=== PATIENT | female | born 1965 | race Caucasian/White ===

== ENCOUNTER 2016-12-03 05:51 | Inpatient (IN) ==
--- NOTE | 2016-11-20 13:19 | EKG Report ---
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
[2016-11-20 13:28] LABS: Hematocrit 41.8 VOL% (35.7-47.0); Hemoglobin 14.3 GM/DL (12.0-16.0)
[2016-11-20 13:51] LABS: Calcium 9.3 MG/DL (8.5-10.1); Osmolality,Calculated 277.4 MOS/KG (273-304); Potassium 3.8 MMOL/L (3.5-5.1)
[2016-12-03] MEDS ORDERED: HEPARIN 5,000 UNIT/1 ML VIAL ONE (06:03)
[2016-12-03] MEDS ORDERED: HYOSCYAMINE 0.125 MG TABLET ONE (06:03)
[2016-12-03] MEDS ORDERED: PANTOPRAZOLE 40 MG VIAL IV ONE ×4 (06:03→10:42)
[2016-12-03] MEDS ORDERED: SCOPOLAMINE 1.5 MG PATCH TRANSDERM ONE ×2 (06:04→07:00)
[2016-12-03] MEDS ORDERED: SODIUM CHLORIDE 0.9% 100 ML IV ONE (06:04)
[2016-12-03] MEDS ORDERED: ACETAMINOPHEN 1,000 MG/100 ML VIAL IV ONE (06:04)
[2016-12-03] MEDS ORDERED: LIDOCAINE 1%/EPI INJ 20 ML VIAL ONE (06:23)
[2016-12-03] MEDS ORDERED: BUPIVACAINE 0.25% /EPI 10 ML VIAL ONE (06:23)
[2016-12-03] MEDS: LACTATED RINGERS 1,000 ML IV SCH ×5 (06:37→23:49)
--- NOTE | 2016-12-03 06:59 | History and Physical Update ---
History and Physical Update - History and Physical H&P was reviewed, the patient examined and there: are no changes in the patients condition since last H&P was completed.
[2016-12-03] MEDS ORDERED: HYOSCYAMINE 0.125 MG TABLET SL ONE (07:00)
[2016-12-03] MEDS ORDERED: ACETAMINOPHEN INJ 1,000 MG in PREMIX 1 EACH IV ONE (07:00)
[2016-12-03] MEDS ORDERED: HEPARIN 5,000 UNIT/1 ML VIAL SUBCUT ONE (07:00)
[2016-12-03] MEDS ORDERED: GLYCOPYRROLATE 0.4 MG/2 ML VIAL ONE (07:08)
[2016-12-03] MEDS ORDERED: PHENYLEPHRINE 1 MG/10 ML SYRINGE IV ONE (07:08)
[2016-12-03] MEDS ORDERED: ONDANSETRON 4 MG/2 ML VIAL ONE ×2 (07:08→10:06)
[2016-12-03] MEDS ORDERED: PROPOFOL 200 MG/20 ML VIAL IV ONE (07:08)
[2016-12-03] MEDS ORDERED: DEXAMETHASONE 10 MG/1 ML VIAL ONE (07:08)
[2016-12-03] MEDS ORDERED: ROCURONIUM 100 MG/10 ML VIAL IV ONE (07:08)
[2016-12-03] MEDS ORDERED: NEOSTIGMINE 10 MG/10 ML VIAL ONE (07:08)
[2016-12-03] MEDS ORDERED: KETOROLAC 30 MG/1 ML VIAL ONE (07:08)
[2016-12-03] MEDS ORDERED: LIDOCAINE 1% 5 ML VIAL ONE (07:08)
[2016-12-03] MEDS ORDERED: BUPIVACAINE LIPOSOMAL 20 ML/266 MG VIAL ONE (07:12)
[2016-12-03] MEDS ORDERED: TISSUE ADHESIVE 1 EACH APPLICATOR TOP ONE (08:53)
[2016-12-03] MEDS ORDERED: hydrALAZINE 20 MG/1 ML VIAL IV PRN (09:17)
[2016-12-03] MEDS ORDERED: ONDANSETRON 4 MG/2 ML VIAL IV PRN (09:17)
--- NOTE | 2016-12-03 09:26 | Anesthesia Post-Op ---
Anesthesia Post OP - Post Ansesthetic Evaluation Patient seen in post op: Yes Resp: within normal limits CV: within normal limits Mental: within normal limits Temp: within normal limits Wery-Jy-Qlrmqiclv: within normal limits Nausea and Vomiting: within normal limits Pain: within normal limits
[2016-12-03] MEDS ORDERED: SUFentanil 50 MCG/ML AMP ONE (09:32)
[2016-12-03] MEDS ORDERED: LACTATED RINGERS 1,000 ML IV ONE ×2 (09:32→14:30)
[2016-12-03] MEDS ORDERED: MIDAZOLAM 2 MG/2 ML VIAL ONE (09:32)
[2016-12-03] MEDS ORDERED: SEVOFLURANE 1 UNIT/15 MINUTE INH ONE (09:32)
[2016-12-03] MEDS ORDERED: MORPHINE 10 MG/5 ML UDCUP PO ONE ×2 (09:36→14:30)
[2016-12-03] MEDS ORDERED: diphenhydrAMINE 50 MG/1 ML VIAL IV PRN (09:37)
[2016-12-03] MEDS ORDERED: ALUM/MAG/SIMETH/LIDO VISC 1:1 30 ML BOTTLE PO ONE ×2 (09:46→09:47)
[2016-12-03] MEDS ORDERED: ONDANSETRON 4 MG/2 ML VIAL IV ONE (10:08)
[2016-12-03] MEDS ORDERED: LACTATED RINGERS 500 ML IV ONE (10:08)
--- NOTE | 2016-12-03 10:17 | EKG Report ---
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
--- NOTE | 2016-12-03 10:56 | XRay Report ---
History: Postop Date: 12/03/2016 Study: Chest x-ray AP portable Comparison exam: September 08, 2016 chest x-ray There is some minor platelike subsegmental atelectasis in the lung bases. Shallow breath. There is no arnold pneumonia or gross pleural effusion. The cardiomediastinal silhouette is unchanged. The osseous structures are stable. Impression: Mild platelike subsegmental atelectasis in the lung bases. PROCEDURE INTERPRETED AT [facility]PARTMENT OF RADIOLOG[facility] Final Report Signed by: Dr. Marisol Dunn
--- NOTE | 2016-12-03 12:37 | Operative Note ---
Date of procedure: 12/03/16 Pre-op diagnosis: Morbid obesity, hypertension Post-op diagnosis: same Procedure: Procedure performed: Robotically assisted laparoscopic vertical sleeve gastrectomy Procedure in detail: After informed consent was obtained, patient was taken to the operating suite lies upon the operating table. After general anesthesia was induced the abdomen was prepped and draped in usual sterile fashion. After procedural pause left upper quadrant incision made and dissection carried down through skin and soft tissue. Anterior fascia was opened the rectus muscle was retracted and the posterior fascia and peritoneum were opened. Finger sweep revealed no adhesions and a Keller trocar was placed under direct visualization. Pneumoperitoneum achieved and the patient was placed in slight reverse Trendelenburg position. 12 mm and 8 mm right upper quadrant trochars were placed and 8 mm and 5 mm left upper quadrant trochars were placed. Experel was used for bilateral peritoneal block. Next the robotic arms were docked not to control to consult. Identified a point approximately 6 cm from the pylorus along the greater curve and began the dissection dividing the fatty tissue off of the greater curvature along with the short gastrics all the way up to the cardia of the stomach. There was no fusion along the posterior wall and the stomach was very freed. Visi G bougie was inserted and advanced through the stomach and manipulated as to hug the lesser curve. Once in satisfactory position and was placed on suction and there was good approximation of the anterior and posterior stomach. Vertical sleeve gastrectomy performed using 1 thick load in the remaining blue beginning along the greater curve and extending up to the cardia staying just on the lateral aspect of the groove created by the suction. There was excellent hemostasis with a little bit of blood in the left upper quadrant from the dissection this was suctioned and irrigated. With good hemostasis noted the staple line was inspected it was found to be completely intact. The remaining portion of stomach appeared healthy and viable in appearance. The staple line was then inverted with 2-0 Prolene running suture. The [place] G bougie was unhooked from suction and removed without problems. I again checked for hemostasis and it was good. There was no obvious hiatal hernia identified. The trochars were removed as the abdomen desufflated and the excised portion of stomach was removed and sent to pathology. Wounds were thoroughly irrigated and suction and the posterior and anterior fascia were reapproximated with interrupted 0 Vicryl [id number]-zu-[id number] interrupted suture. Deep dermal layer was closed with 3- 0 Vicryl. 4-0 Monocryl used to close the skin. Sterile dressings applied. Patient was explained taken recovery room in stable condition. All lap and needle counts were correct at the end of the case. Anesthesia: KIAA Surgeon / Physician: Rudolph Mcmahon Estimated blood loss: other (Less than 15 cc) Specimens: other (Stomach) Condition: stable Disposition: PACU Results - Labs CBC & BMP: 11/20/16 13:13 11/20/16 13:13 Discharge Plan - Discharge Medications No Action Levothyroxine Tab [Synthroid Tab] 88 mcg PO DAILY@0700 hydroCHLOROthiazide [Hydrochlorothiazide] 25 mg PO DAILY Sertraline [Zoloft] 100 mg PO DAILY Cholecalciferol (Vitamin D3) [Vitamin D3] 1 tablet PO DIRECTED Losartan [Cozaar] 25 mg PO DAILY - Follow Up or Referral - Forms/Instructions
[2016-12-03] MEDS: SERTRALINE 100 MG TABLET PO SCH (12:42)
--- NOTE | 2016-12-03 15:47 | Event Note ---
Patient appear to be doing well in recovery only complaining of some burping. She got to the floor in her blood pressure was slightly low about systolic of 90. She was not tachycardic. We gave her some fluid and it improved. She then got up to use the bathroom and had a near syncopal episode but did not pass out completely. Recheck of her blood pressure showed systolic in the 70s. I have evaluated in her abdomen is soft and appropriately tender and she is complaining of chest pain in the mid chest just above the xiphoid region. She also has shortness of breath. It appears an EKG was done and recovery room that showed an incomplete bundle branch block. She had a chest x-ray that showed some atelectasis. She has been given fluid and currently her systolic is 98. She still has no tachycardia. I discussed with Dr. Shelby and notified him. Will check another EKG now as well as an H&H and troponins. We will keep a close eye on her and if she becomes more hypotensive we will may have to transfer her to the ICU. Overall she looks pretty good and does not appear to be in any distress.
--- NOTE | 2016-12-03 16:05 | EKG Report ---
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
--- NOTE | 2016-12-03 16:18 | Cardiology Consult Note ---
Assessment and Plan - Time spent with patient Time spent with patient: Less than 30 minutes (1) Chest pain Status: Acute Assessment and plan: The patient is postoperatively seen. She has various types of discomfort that could suggest various etiologies. She certainly could have coronary ischemia and is at risk for coronary artery disease given her risk strata. There are no diagnostic EKG changes at this time. I discussed with Dr. Mcmahon. Cardiac biomarkers have been ordered and will be cycled. Also must consider noncardiac etiologies including esophageal spasm pulmonary embolism etc. Dr. Mcmahon and I discussed the plan if her biomarkers and hemoglobin hematocrit are acceptable consider CT scan of the chest to rule out pulmonary embolism. I do not think at this time any specific therapy should be initiated for ischemia. Continue serial ECGs. 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 Cabello is a 51 year old female CC: Rudolph Mcmahon MD 51-year-old female that I saw preoperatively for sleeve procedure. The patient preoperatively had no signs or symptoms of decompensated heart failure or any chest discomfort to suggest angina or unstable angina or decompensation. She has an incomplete right bundle branch block on her EKG. This EKG is very similar to the 2 that have been performed postoperatively. The patient had a sleeve procedure today with no significant bleeding at the time of the procedure now while on the floor post procedure develops shortness of breath and discomfort in her chest she states it is hard to breathe and hurts when she takes a deep breath. I discussed with Dr. Vieira via phone I came and saw and examined the patient and discussed again with Dr. Vieira. I have looked at her EKGs she has sinus rhythm with incomplete right bundle branch block and no diagnostic ST segment changes. There is some subtle difference in the 3 EKGs isolated in V3. This does not appear to suggest ischemia. I saw and examined the patient the bedside at which time her blood pressure was 110/70 heart rate was initially 80 to be during my exam it went to 100. The patient was hypotensive slightly after surgery and had a syncopal or near syncopal episode when getting up to go to the restroom at which time she had a low blood pressure. She denies radiation of the discomfort that she describes as being in her "bra line." She has non-diaphoretic. - Home Medications and Allergies Home Medications: Home Medications Medication Instructions Recorded Confirmed Type Cholecalciferol (Vitamin D3) 1 tablet PO DAILY 11/20/16 12/03/16 History [Vitamin D3] Levothyroxine Tab [Synthroid Tab] 88 mcg PO DAILY@0700 11/20/16 12/03/16 History Losartan [Cozaar] 25 mg PO DAILY 11/20/16 12/03/16 History Sertraline [Zoloft] 100 mg PO DAILY 11/20/16 12/03/16 History hydroCHLOROthiazide 25 mg PO DAILY 11/20/16 12/03/16 History [Hydrochlorothiazide] Allergies/Adverse Reactions: Allergies Allergy/AdvReac Type Severity Reaction Status Date / Time sulfamethoxazole Allergy Severe ANAPHYLAXIS Verified 12/03/16 06:26 [From Bactrim] trimethoprim [From Bactrim] Allergy Severe ANAPHYLAXIS Verified 12/03/16 06:26 hydrocodone Allergy Mild RASH Verified 12/03/16 06:26 - EENT Nose, mouth and throat: Absent: dysphagia, lip swelling, nasal congestion - Cardiovascular Cardiovascular: Present: chest pain at rest, dyspnea, other (As per HPI pain with inspiration) - Respiratory Respiratory: Present: dyspnea - Gastrointestinal Gastrointestinal: Present: bloating, dyspepsia - Genitourinary Genitourinary: Absent: abnormal vaginal bleeding - Musculoskeletal Musculoskeletal: Absent: arthralgias - Neurological Neurological: Absent: abnormal gait - Psychiatric Psychiatric: Present: anxiety. Absent: depression - Endocrine Endocrine: Absent: cold intolerance, heat intolerance - Hematologic/Lymphatic Hematologic/Lymphatic: Absent: easy bleeding, easy bruising Medical,Surgical,& Family Hx - Medical History Cardio: History of: Hypertension (medication) No history of: Cardiac Dysrhythmia, CHF, [place], Pacemaker, PVD, Valvular Heart Disease Psychological: History of: Anxiety Disorders (medication) Neurology: No history of: Brain Aneurysm, Migraine, Peripheral Neuropathy, Seizures HEENT: History of: Eye Problem (glasses) Endocrine: History of: Thyroid Disorder (medication) Gastrointestinal: No history of: Diverticulitis/ Diverticulosis, GERD, Hepatitis, Liver Problems, Polyps Hematology: No history of: Blood Transfusion Reaction Other: No history of: Anesthesia Reactions - Surgical History Cardiac Surgeries: Patient Denies: Cardiac Catheterization Thoracic Surgeries: Patient denies;: Organ Transplant Neurologic Surgeries: Patient denies: Brain Aneurysm HEENT Surgeries: Surgical HX of: Tonsilectomy & Adenoidectomy Abdominal Surgeries: Surgical HX of: Gastric Bypass Surgery (for weight loss) Reproductive Surgeries: Surgical HX of;: Section (x2) - Family History Family History: noncontributory - Social History Smoking Status: Never smoker Frequency of Alcohol Use: None Type of Drug Use: None Marital Status: Lives With:: Spouse Functional capacity: independent ambulation Physical Examination Vital Signs Temp Pulse Resp BP Pulse Ox 97.5 F L 75 16 113/70 96 12/03/16 06:27 12/03/16 06:27 12/03/16 06:27 12/03/16 06:27 12/03/16 06:27 General: Present: Other (Obese in mild distress she appears anxious. She is not tachypneic) HEENT: Present: Pallor, Normocephaly Neck: Present: Supple Neck, No JVD/HJR Cardiac: Present: S1/S2 (Her heart rate is approximately 85) Lungs: Present: Other (She will not take a good deep breath because of pain. It arrest her inspiratory effort) Neuro: Present: Cranial Nerve 2-12 Intact Abdomen: Present: Soft, Active Bowel Sounds (Bowel sounds are hyperactive and she belched multiple times during the examination) Skin: Present: Clear Extremities: Present: No Edema (SCDs are in place) Result/EKG - Labs CBC & BMP: 11/20/16 13:13 11/20/16 13:13 - EKG EKG results: interpreted by me (Sinus rhythm with incomplete right bundle branch block) Quality Measures - VTE Contraindication to Pharmacological VTE Prophylaxis: High Risk of Bleeding
[2016-12-03 16:34] LABS: Hematocrit 28.5 VOL% (35.7-47.0); Hemoglobin 9.6 GM/DL (12.0-16.0)
[2016-12-03] MEDS: ceFAZolin 2,000 MG in PREMIX 1 EACH IV SCH ×2 (16:34→23:48)
[2016-12-03 17:12] LABS: Troponin I Only 0.028 NG/ML (0.00-0.045)
[2016-12-03] MEDS ORDERED: LORazepam 1 MG TABLET ONE (17:55)
[2016-12-03] MEDS ORDERED: LORazepam 2 MG/1 ML VIAL ONE (17:56)
[2016-12-03] MEDS ORDERED: LORazepam 2 MG/1 ML VIAL IV ONE (18:00)
--- NOTE | 2016-12-03 19:15 | CT Report ---
CT chest pulmonary embolism Indication: Chest pain, syncope Comparison: None available Technique: Axial CT imaging of the chest is performed with intravenous contrast. Contrast dose is 80 cc of Omnipaque 350. Findings: No thrombus or other abnormality is identified in the pulmonary arteries or veins. The pulmonary vessel caliber is slightly increased. The heart, mediastinum and great vessels appear within normal limits. Small amounts of bilateral lower lung air space density are present. Remaining pulmonary parenchyma shows no evidence of airspace disease or abnormal density. No effusion or pneumothorax is present. Impression: No evidence of pulmonary thromboembolism. Small amount of bilateral lower lung airspace density, may indicate atelectasis. Increased pulmonary vasculature could indicate mild cardiac decompensation.. This CT exam was performed using one or more the following dose reduction techniques: Automated exposure control, adjustment of the MA and/or KV according to patient size, or use of iterative reconstruction technique. PROCEDURE INTERPRETED AT [facility] DEPARTMENT OF RADIOLOGY Final Report Signed by: Dr. Abhi Davis
--- NOTE | 2016-12-03 19:28 | CT Report ---
CT abdomen pelvis Indication: Abdominal pain, postoperative gastric sleeve Comparison: None available Technique: Axial CT imaging of the abdomen and pelvis is performed with intravenous and oral contrast. Contrast dose is 100 cc of Omnipaque 350. Findings: Cardiac and lung bases are within normal limits CT abdomen: There is moderate perihepatic fluid with a small amount of air present. There is large amount of perisplenic fluid with some increased density. No active contrast extravasation into the fluid is identified The spleen itself appears within normal limits. Surgical changes are present in the adjacent stomach wall. The liver spleen pancreas and adrenal glands are normal in size and enhancement. No evidence of focal lesion is demonstrated in these solid organs. Fluid with some heterogeneous density is seen in the paracolic gutters. Kidneys are normal in size and enhancement. No evidence of hydronephrosis or nephrolithiasis is seen. The bowel caliber is normal and no wall thickening or adjacent inflammatory change is seen. No evidence of free fluid or free air is present. CT pelvis: The pelvic bowel appears within normal limits. Bladder shows no evidence of abnormality. The pelvic organs show no evidence of abnormality Impression: Moderate amount of perihepatic fluid with small amount of air present. Large amount of perisplenic fluid with some increased density in the fluid. Spleen appears within normal limits in size of the fluid. This likely indicates some combination of hemorrhage and air in solution. Patient had surgery same day. Findings discussed Dr. Vieira. This CT exam was performed using one or more the following dose reduction techniques: Automated exposure control, adjustment of the MA and/or KV according to patient size, or use of iterative reconstruction technique. PROCEDURE INTERPRETED AT [facility] DEPARTMENT OF RADIOLOGY Final Report Signed by: Dr. Abhi Davis
[2016-12-03] MEDS: MEPERIDINE 25 MG/1 ML VIAL IV PRN (21:43)
[2016-12-03 22:18] LABS: Hematocrit 27.7 VOL% (35.7-47.0); Hemoglobin 9.6 GM/DL (12.0-16.0)
[2016-12-04] MEDS: LACTATED RINGERS 1,000 ML IV SCH ×3 (03:55→21:09)
[2016-12-04] MEDS: MEPERIDINE 25 MG/1 ML VIAL IV PRN ×3 (03:56→14:59)
[2016-12-04 05:05] LABS: Basophils % 0.1 % (0.0-0.8); Hematocrit 25.5 VOL% (35.7-47.0); Hemoglobin 8.7 GM/DL (12.0-16.0); Immature Granulocytes % 0.6 %; Immature Granulocytes Absolute 0.06 #; Lymphocytes % 10.7 % (21.3-54.2); Mean Corpuscular HGB Conc 34.1 GM/DL (32-36); Mean Corpuscular Hemoglobin 30 PG (27-34); Mean Corpuscular Volume 86.7 FL (87-102); Mean Platelet Volume 9.3 FL (9.6-12.0); Monocytes # 0.5 10*3/uL (0.11-0.8); Monocytes % 5.7 % (1.7-12.7); Neutrophils # 7.7 10*3/uL (1.4-7.4); Neutrophils % 82.9 % (38.7-73.9); Platelet Count 204 T/CUMM (130-400); Red Blood Count 2.94 MC/CUMM (3.8-5.5); Red Cell Distribution Width 13.5 % (9.3-17.3); White Blood Count 9.3 T/CUMM (4-12)
[2016-12-04 05:39] LABS: Osmolality,Calculated 273.7 MOS/KG (273-304); Potassium 3.1 MMOL/L (3.5-5.1)
[2016-12-04] MEDS: LEVOTHYROXINE 88 MCG TABLET PO SCH (06:52)
--- NOTE | 2016-12-04 08:21 | Event Note ---
Postop day 1 status post vertical sleeve gastrectomy. Patient experienced some hypotension yesterday. She was having some shortness of breath and lower chest pain. EKG and cardiac enzymes looked okay. She had a drop in her H&H. Would not expect hypotension with a hemoglobin of 9.7. She has not had any tachycardia. She remains afebrile. She had a CT scan to rule out a PE. There was no PE but she does have some fluid mostly around the spleen and some around the right lobe of the liver. I think some of this is likely blood and some of it is irrigation. Repeat H&H last night was stable. This morning it is slightly lower. She is continued to get IV fluids. I suspect the most likely source is probably bleeding from a short gastric or oozing from the dissection. She has clinically been stable overnight. She says today she feels a little bit better. Still having some lower chest discomfort but her shortness of breath is much improved. She is clear to auscultation bilaterally. Regular rate and rhythm. Abdomen is soft nondistended with very minimal tenderness elicited. She is less tender than one would expect after a laparoscopic case. Plan: She may have had some bleeding. We will have to watch this closely. I am going to hold on any Lovenox or blood thinners. We will recheck her H&H today. We will stop her IV fluids encourage more p.o. She will continue with the diet protocol for now. Will replace potassium. I have encouraged her to ambulate and be up in a chair. May be home in a day or 2. If she has evidence of ongoing active bleeding then will plan for laparoscopy and see if we can identify this. I suspect whatever was bleeding is likely stopped and she is just equilibrating. There was no active extravasation on the CT scan. She may require blood transfusion but will see if she become symptomatic or if her H&H drops further. Nursing staff instructed to call me directly with any concerns regarding this patient. Especially for fever hypotension below 90 or heart rate above 110.
[2016-12-04] MEDS ORDERED: POTASSIUM CHLORIDE RIDER 10 MEQ in PREMIX 1 EACH IV PRN (08:25)
[2016-12-04] MEDS ORDERED: POTASSIUM CHLORIDE RIDER 10 MEQ in PREMIX 1 EACH IV ONE (09:47)
[2016-12-04] MEDS: PANTOPRAZOLE 40 MG VIAL IV SCH (10:04)
[2016-12-04] MEDS: SERTRALINE 100 MG TABLET PO SCH (10:05)
[2016-12-04] MEDS: SIMETHICONE CHEW 80 MG TABLET PO SCH ×3 (10:05→21:09)
--- NOTE | 2016-12-04 11:35 | Pathology Report from [facility] ---
[facility] ACCESSION # : [id number] PATIENT NAME : Elliott Coles ORDERING DR : Rudolph Mcmahon MD CLINICAL HX: Morbid obesity POST-OP DX: Same SPECIMEN INFO: Portion of stomach GROSS DESCRIPTION: The specimen is received in formalin labeled with the patients name ELLIOTT COLES and consists of a circular portion of stomach which is hyperemic pink-hooker measuring 23.5 cm x up to 4.0 cm. Opening the stomach reveals normal mucosal folds, and contains hemorrhagic material. There is a 0.2 cm polypoid area present. No other abnormalities identified. Roster Clerk tissue submitted in one cassette. DIAGNOSIS FOR ELLIOTT COLES: PORTION OF STOMACH, GASTRECTOMY: Congestion and submucosal lipoma. COLLECTED DATE: 12/03/2016 [facility] REPORT DATE: 12/04/2016 ELECTRONICALLY SIGNED BY: Jacques Carias M.D. 12/04/2016 - 9:50:53 MTDD
[2016-12-04] MEDS: POTASSIUM CHLORIDE RIDER 10 MEQ in PREMIX 1 EACH IV PRN ×4 (11:57→18:38)
[2016-12-04 13:33] LABS: Hemoglobin 8.2 GM/DL (12.0-16.0)
--- NOTE | 2016-12-04 16:46 | Cardiology Progress Note ---
Gato Snider Vanessa RN, am scribing for, and in the presence of, Jennifer Garcia DO 16 :46. Assessment and Plan - Time spent with patient Time spent with patient: Greater than 30 minutes (1) Chest pain Status: Acute Assessment and plan: Atypical chest pain status post sleeve gastrectomy with lots of belching in immediate postoperative period. Serial cardiac biomarkers have been normal. EKG with no acute changes or ischemic finding. I have nothing further to add at this time I will sign off. Please call if needed Current Visit: Yes Qualifiers: Chest pain type: chest pain on breathing Qualified Code(s): R07.1 - Chest pain on breathing (2) Status post laparoscopic sleeve gastrectomy Status: Acute Assessment and plan: POD #1 status post laparoscopic vertical sleeve gastrectomy. This is primarily managed by Dr. Mcmahon. Due to some persistent hypotension in spite of IV hydration, she is being monitored closely for bleeding. All anticoagulants are being held. Current Visit: Yes (3) Postoperative anemia Status: Acute Assessment and plan: Preoperative H&H 14.3/41.8. Initial postoperative drop to hemoglobin 9.6. This morning, H&H 8.7/25.5. Anticoagulation is being held. She has not required transfusion at this time. Current Visit: Yes (4) Diabetes Status: Chronic Assessment and plan: Continue current plan of care. 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 Patient is actually having some hypotension with SBP no lower than 98 mmHg overnight. She is receiving IV fluids. Continue to monitor closely. No routine antihypertensive medications being given at this time. Current Visit: Yes Qualifiers: Hypertension type: essential hypertension Qualified Code(s): I10 - Essential (primary) hypertension (6) Obesity Status: Chronic Assessment and plan: Dietary counseling and caloric intake reduction. Patient is also now status post laparoscopic sleeve gastrectomy. Current Visit: Yes Cardiology - PN: Subj Interval history: PRIMARY STRUCTURES ENGINEER: DR. GARCIA (SAW FOR PREOPERATIVE EXAM) SUMMARY: Ms. Cabello is a 51-year-old white female with risk factor significant for: obesity, hypertension, diabetes, sedentary lifestyle. Other past medical history includes thyroid disorder. Patient underwent elective laparoscopic sleeve gastrectomy yesterday December 03. Procedure was uneventful. Postoperatively, she reported some chest pain. Cardiology was consulted for evaluation of chest pain EKG showed no diagnostic changes. Serial cardiac biomarkers have been cycled and they are normal. Chest CT per PE protocol on the evening of December 03 showed minimal atelectasis bilateral lower lobes but no evidence of pulmonary embolism. November: Ms. Cabello is awake and alert this morning, and she is ambulating out of the bathroom without assistance. Her is present with her. Reports she had some nausea earlier but no vomiting. Patient has continued to have some hypotension with systolic pressure no lower than 98 mmHg overnight. She has been hydrated with IV fluids. Postop H&H this morning 8.7/25.5. She is being monitored closely for bleeding. Anticoagulants are being held. Patient has not required transfusion. She does continue to report some intermittent atypical chest pain described as epigastric pressure with discomfort radiating to right side of chest at times. No associated diaphoresis, presyncope, palpitations, or other anginal complaint. Admits to belching and burping overnight and this morning. She is having some mild postop surgical discomfort of the abdomen. Appetite is good this morning. BP 115/65. Pulse is regular by exam. Patient is getting ready to ambulate down the hallway with assistance of her . The patient's discomfort seems to be related to gas. After several eructation she is doing better she has been taking Gas-X and states that she feels better her H&H are noted as above hemoglobin is down 8.[address] Mcmahon was to keep her over the evening consider transfusion based on her H&H today. She looks much better today there is no evidence of acute coronary syndrome or cardiac etiology for her atypical chest discomfort Exam (Progress Note) - Constitutional Vitals: Period Temp Pulse Resp BP Sys/Cortez Pulse Ox Last 24 Hr 96 F-98.5 F 63-98 16-21 78-129/40-82 92-99 Exam: General: Present: No acute distress. Obese. HEENT: Present: Pallor, Normocephaly. No tenderness. Neck: Present: Supple Neck, No JVD/HJR Cardiac: Present: S1/S2. Regular rate and rhythm. No bradycardia, no tachycardia. No murmur. Lungs: Present: Other (She will not take a good deep breath because of pain. It arrest her inspiratory effort) Neuro: Present: Cranial Nerve 2-12 Intact. No resting tremor. Abdomen: Present: Soft, hyperactive active Bowel Sounds. Other: Some abdominal tenderness related to surgical procedure. Skin: Present: Clear, warm, dry. Absent: Cyanosis, diaphoresis, rash, suspicious lesion. Extremities: Present: No Edema (SCDs are in place). Result/EKG - Labs CBC & BMP: 12/04/16 13:05 12/04/16 04:46 Lab Results: I have reviewed the past 24 hour labs Labs: Laboratory Results - last 24 hr 12/03/16 12/03/16 12/03/16 15:49 15:52 15:52 WBC RBC Hgb 9.6 L Hct 28.5 L MCV MCH MCHC RDW Plt Count MPV Neut % (Auto) Lymph % (Auto) Robeson % (Auto) Eos % (Auto) Baso % (Auto) Neut # (Auto) Lymph # (Auto) Robeson # (Auto) Eos # (Auto) Baso # (Auto) Immature Gran % Nucleated RBC % Immature Gran # Nucleated RBCs # Immature Plt Fraction Sodium Potassium Chloride Carbon Dioxide Anion Gap BUN Creatinine GFR Calculation BUN/Creatinine Ratio Glucose Calculated Osmolality Calcium Total Creatine Kinase 75 CK-MB (CK-2) 1.0 Troponin I 0.028 Blood Type A POSITIVE Antibody Screen Negative 12/03/16 12/04/16 12/04/16 21:41 04:46 04:46 WBC 9.3 RBC 2.94 L Hgb 9.6 L 8.7 L Hct 27.7 L 25.5 L MCV 86.7 L MCH 30 MCHC 34.1 RDW 13.5 Plt Count 204 MPV 9.3 L Neut % (Auto) 82.9 H Lymph % (Auto) 10.7 L Robeson % (Auto) 5.7 Eos % (Auto) 0.0 Baso % (Auto) 0.1 Neut # (Auto) 7.7 H Lymph # (Auto) 1.0 L Robeson # (Auto) 0.5 Eos # (Auto) 0.0 Baso # (Auto) 0.0 Immature Gran % 0.6 Nucleated RBC % 0.0 Immature Gran # 0.06 Nucleated RBCs # 0.00 Immature Plt Fraction 0.0 Sodium 138 Potassium 3.1 L Chloride 103 Carbon Dioxide 29 Anion Gap 9.1 BUN 7 Creatinine 0.60 GFR Calculation 130 BUN/Creatinine Ratio 11.00 Glucose 115 H Calculated Osmolality 273.7 Calcium 8.0 L Total Creatine Kinase CK-MB (CK-2) Troponin I Blood Type Antibody Screen 12/04/16 06:47 WBC RBC Hgb Hct MCV MCH MCHC RDW Plt Count MPV Neut % (Auto) Lymph % (Auto) Robeson % (Auto) Eos % (Auto) Baso % (Auto) Neut # (Auto) Lymph # (Auto) Robeson # (Auto) Eos # (Auto) Baso # (Auto) Immature Gran % Nucleated RBC % Immature Gran # Nucleated RBCs # Immature Plt Fraction Sodium Potassium Chloride Carbon Dioxide Anion Gap BUN Creatinine GFR Calculation BUN/Creatinine Ratio Glucose Calculated Osmolality Calcium Total Creatine Kinase CK-MB (CK-2) Troponin I 0.022 Blood Type Antibody Screen - Diagnostic Findings Procedure: CT - chest: image reviewed by me, report reviewed by me - EKG EKG results: interpreted by me, no acute changes EKG shows: sinus rhythm Quality Measures - VTE Contraindication to Pharmacological VTE Prophylaxis: High Risk of Bleeding IAnaly Shea, , personally performed the services described in this documentation, ascribed by Maria Alejandra Hoskins RN in my presence, and it is both accurate and complete 646 .
[2016-12-04 19:18] LABS: Hematocrit 23.1 VOL% (35.7-47.0); Hemoglobin 7.9 GM/DL (12.0-16.0)
[2016-12-04] MEDS ORDERED: SODIUM CHLORIDE 0.9% 250 ML IV PRN (20:01)
[2016-12-05] MEDS: LACTATED RINGERS 1,000 ML IV SCH ×2 (01:07→05:40)
[2016-12-05] MEDS: MEPERIDINE 25 MG/1 ML VIAL IV PRN (01:14)
[2016-12-05 06:18] LABS: Basophils % 0.3 % (0.0-0.8); Eosinophils % 0.1 % (0.00-10.9); Hematocrit 27.3 VOL% (35.7-47.0); Hemoglobin 9.4 GM/DL (12.0-16.0); Immature Granulocytes % 1.6 %; Immature Granulocytes Absolute 0.11 #; Lymphocytes # 1.2 10*3/uL (1.4-4.0); Lymphocytes % 17.5 % (21.3-54.2); Mean Corpuscular HGB Conc 34.4 GM/DL (32-36); Mean Corpuscular Hemoglobin 30 PG (27-34); Mean Corpuscular Volume 87.8 FL (87-102); Mean Platelet Volume 9.3 FL (9.6-12.0); Monocytes # 0.4 10*3/uL (0.11-0.8); Monocytes % 6.2 % (1.7-12.7); Neutrophils % 74.3 % (38.7-73.9); Platelet Count 147 T/CUMM (130-400); Red Blood Count 3.11 MC/CUMM (3.8-5.5); Red Cell Distribution Width 14.6 % (9.3-17.3); White Blood Count 6.8 T/CUMM (4-12)
[2016-12-05 06:46] LABS: Calcium 7.9 MG/DL (8.5-10.1); Potassium 3.2 MMOL/L (3.5-5.1)
[2016-12-05] MEDS ORDERED: ACETAMINOPHEN 325 MG/10.15 ML UDCUP PO PRN (08:33)
[2016-12-05] MEDS ORDERED: ENOXAPARIN 40 MG/0.4 ML SYRINGE SUBCUT SCH (09:00)
[2016-12-05] MEDS: LEVOTHYROXINE 88 MCG TABLET PO SCH (09:16)
[2016-12-05] MEDS: SERTRALINE 100 MG TABLET PO SCH (09:16)
[2016-12-05] MEDS: SIMETHICONE CHEW 80 MG TABLET PO SCH ×3 (09:16→22:08)
[2016-12-05] MEDS: PANTOPRAZOLE 40 MG VIAL IV SCH (09:17)
[2016-12-05] MEDS: POTASSIUM CHLORIDE RIDER 10 MEQ in PREMIX 1 EACH IV PRN ×4 (12:40→18:45)
[2016-12-05 13:02] LABS: Hematocrit 27.3 VOL% (35.7-47.0); Hemoglobin 9.1 GM/DL (12.0-16.0)
--- NOTE | 2016-12-05 13:20 | Event Note ---
Patient feels great. Says she is ready to go home. Her vitals been stable. She is been tolerating her phase 1 diet without any nausea. The discomfort she had in the lower chest is completely resolved. She has been afebrile. She received 2 units of blood. I think she had some bleeding postoperatively. After the 2 units this morning her H&H was 9.4 and 27.3. It was rechecked approximately 7 hours later and had hardly changed at 9.1 and again hematocrit was 27.3. Her abdomen is soft with less tenderness than expected. She is passing flatus and she is doing very well. She has been ambulating. Hopefully the bleeding is stopped. I am going to repeat her lab work this evening and go from there. Other than the concern for bleeding she ready to go home.
[2016-12-05 20:22] LABS: Hematocrit 26.3 VOL% (35.7-47.0); Hemoglobin 8.9 GM/DL (12.0-16.0)
[2016-12-05] MEDS ORDERED: SODIUM CHLORIDE 0.9% 250 ML IV PRN (20:39)
--- NOTE | 2016-12-05 20:50 | Event Note ---
Patient continues to feel well. Her vital signs are stable. Her abdomen is soft and appropriately tender. Overall she is doing very well but her H&H has continued to trend down. This is been discussed with her and her family. Options of continuing to watch it versus laparoscopy to attempt to identify the source of bleeding were discussed. I discussed the risks of the procedure again including the possibility that no obvious active bleed is identified. She would like to proceed to attempt and identify any source of bleeding and take care of it at this time. She understands the possibility of conversion to an open procedure.
[2016-12-05] MEDS ORDERED: LIDOCAINE 1%/EPI INJ 20 ML VIAL ONE (22:26)
[2016-12-05] MEDS ORDERED: BUPIVACAINE 0.25% /EPI 10 ML VIAL ONE (22:26)
[2016-12-05] MEDS ORDERED: TISSUE ADHESIVE 1 EACH APPLICATOR TOP ONE (22:26)
[2016-12-05] MEDS ORDERED: ceFAZolin 1,000 MG VIAL ONE (22:26)
[2016-12-06] MEDS ORDERED: PROPOFOL 200 MG/20 ML VIAL IV ONE (01:42)
[2016-12-06] MEDS ORDERED: ONDANSETRON 4 MG/2 ML VIAL IV PRN (01:42)
[2016-12-06] MEDS ORDERED: MIDAZOLAM 2 MG/2 ML VIAL ONE (01:43)
[2016-12-06] MEDS ORDERED: fentaNYL 100 MCG/2 ML VIAL ONE (01:43)
[2016-12-06] MEDS ORDERED: GLYCOPYRROLATE 0.4 MG/2 ML VIAL ONE (01:43)
[2016-12-06] MEDS ORDERED: NEOSTIGMINE 10 MG/10 ML VIAL ONE (01:43)
[2016-12-06] MEDS ORDERED: LACTATED RINGERS 1,000 ML IV ONE (01:43)
[2016-12-06] MEDS ORDERED: DESFLURANE 1 UNIT/15 MINUTE INH ONE (01:43)
[2016-12-06 01:45] LABS: Hematocrit 36.5 VOL% (35.7-47.0)
[2016-12-06] MEDS: HYDROmorphone 2 MG/1 ML VIAL IV PRN ×3 (01:45→02:03)
[2016-12-06 01:47] LABS: Hemoglobin 12.4 GM/DL (12.0-16.0)
--- NOTE | 2016-12-06 02:08 | Operative Note ---
Date of procedure: 12/05/16 Pre-op diagnosis: hemoperitoneum, s/p sleeve gastrectomy Post-op diagnosis: same Procedure: Procedure performed: Diagnostic laparoscopy, clip ligation of short gastric vessels Procedure in detail: After informed consent was obtained patient taken operating suite lies upon the operating table. After general anesthesia induced the abdomen was prepped and draped in usual sterile fashion. After procedural pause local anesthetic infiltrated in the skin and subcutaneous tissue around the previous incisions and I opened the previous Keller trocar site and bluntly dissected down to the fascial stitch removed it and bluntly entered the abdominal cavity. There was no adhesions and a Keller trocar was placed under direct visualization. Pneumoperitoneum was achieved camera inserted. The nearby bowel and mesentery were inspected and there appeared uninjured. In the left upper quadrant there was some obvious bloody fluid. There was some bloody tinged fluid in the right abdomen but appeared more serosanguineous compared to the left upper quadrant. Patient was placed in reverse Trendelenburg position. A 5 and 10 mm trocar were placed using the previous left upper quadrant incisions. A small 5 mm trocar was also placed in the epigastric region for fan retraction. Then able to suction the blood from the left upper quadrant including some clot between the spleen and the sleeve. Appeal the omentum and fatty tissue away from the staple line of t sleeve and examined the sleeve well. The sleeve looked excellent. It appeared healthy viable and there was no bleeding from the staple line inversion or anywhere along the sleeve. Continue to suction some clot from around the area of the short gastrics but found no active spurting i or oozing in this area. I saw several short gastrics that had been ligated with the vessel sealer but none were actively bleeding. I elected to place clips on these vessels. I continue to inspect around the spleen and splenic hilum. I found no active bleeding but there was a slow recurrence of pooling of blood in the left upper quadrant around the spleen. I spent over 2 hours trying to identify exactly what was bleeding but found nothing. I found no bleeding in the area of the previous dissection. I could not evaluate the posterior splenic recess very well. I therefore elected to connect the 2 trocar sites with an incision and placed the GelPort. Using a hand assist technique I was then able to pull the spleen inferiorly to examine the sub-diaphragmatic space and the top of the spleen and found no source of bleeding. Multiple lap pads were then placed in the left upper quadrant and I packed this and then held pressure with my hand for about 15 minutes and then the packs were removed. The pooling of blood in the left upper quadrant slowed significantly. Previously it appeared to be more bright and now very minimal darker venous appearing blood was pooling. I again searched the staple line the short gastric resection area and all around the spleen and could not find any evidence of oozing or bleeding. I replaced the packs and held pressure for another 15 minutes. Once removed I found no further pooling of blood and no evidence of ongoing active bleeding. [place] like the most likely source would have been the short gastrics. Surgicel was introduced and placed along the line of dissection of the short gastrics. Another was placed around the splenic hilum. Tisseel was used to spray the staple line in the area of the short gastrics. A 10 [place] VALENTINO drain was placed on soft but diaphragmatic recess above the spleen. It was brought out through the epigastric port. Secured in place using 3-0 nylon suture. The fascia at the old Keller trocar site was closed using 0 Vicryl [id number] interrupted suture. Fascia at the hand assist site was closed using #1 Prolene running suture. The wounds were thoroughly irrigated and suctioned. There appeared to be good hemostasis and the deep dermal layers were closed with 3-0 Vicryl. 4-0 Monocryl used to close the skin. Sterile dressings applied and the patient was extubated and taken recovery room in stable condition. All lap and needle counts correct at the end of the case. Anesthesia: GETA Surgeon / Physician: Rudolph Mcmahon Estimated blood loss: other (300 cc previous blood, about 100 cc of fresh blood) Specimens: none sent Condition: stable Disposition: PACU Results - Labs CBC & BMP: 12/06/16 09:49 12/06/16 09:49 Discharge Plan - Discharge Medications No Action Levothyroxine Tab [Synthroid Tab] 88 mcg PO DAILY@0700 hydroCHLOROthiazide [Hydrochlorothiazide] 25 mg PO DAILY Sertraline [Zoloft] 100 mg PO DAILY Cholecalciferol (Vitamin D3) [Vitamin D3] 1 tablet PO DAILY Losartan [Cozaar] 25 mg PO DAILY - Follow Up or Referral - Forms/Instructions
[2016-12-06] MEDS: LACTATED RINGERS 1,000 ML IV SCH ×2 (02:40→08:49)
[2016-12-06] MEDS: MEPERIDINE 25 MG/1 ML VIAL IV PRN ×6 (04:11→23:02)
[2016-12-06] MEDS: LEVOTHYROXINE 88 MCG TABLET PO SCH (06:15)
[2016-12-06] MEDS ORDERED: LORazepam 2 MG/1 ML VIAL IV PRN (06:41)
[2016-12-06 10:18] LABS: Hematocrit 35.5 VOL% (35.7-47.0); Hemoglobin 12.3 GM/DL (12.0-16.0)
[2016-12-06 10:32] LABS: PT Patient Result 10.7 SECS
[2016-12-06 10:38] LABS: Calcium 7.7 MG/DL (8.5-10.1); Osmolality,Calculated 275.5 MOS/KG (273-304); Potassium 3.9 MMOL/L (3.5-5.1)
[2016-12-06] MEDS: HYOSCYAMINE 0.125 MG TABLET PO PRN ×3 (10:58→19:23)
[2016-12-06] MEDS: SERTRALINE 100 MG TABLET PO SCH (10:59)
[2016-12-06] MEDS: PANTOPRAZOLE 40 MG VIAL IV SCH (10:59)
[2016-12-06] MEDS: SIMETHICONE CHEW 80 MG TABLET PO SCH ×3 (10:59→21:16)
--- NOTE | 2016-12-06 11:52 | Event Note ---
Patient is doing well this morning. Her vital signs have been stable. She had a low-grade temperature around the time of the operation and blood transfusion. She is currently afebrile. She only complains of pain at the hand assist site. This is expected. VALENTINO drain has put out minimal dark serosanguineous fluid. There are no clots. H&H is stable compared to the posttransfusion lab work. Rest of her lab work looks good. Will stop her IV fluids restart phase 1 diet for now. We will add Levsin to see if that helps with some of her crampy pain. We will try Hycet elixir as I think it will help control her pain long-term better but she can still use the IV Demerol as needed. She says she has used hydrocodone several times in the past. The last time she was in the hospital for a broken ankle she says she had some rash. She was told it may be the hydrocodone that she had never had a problem before when using it. It is unsure whether she has a real allergy to hydrocodone or some other medicine that may have been used at that time. Will have a lot of options for liquid pain medicine so we will try the liquid hydrocodone. She is only getting about 500 cc on her incentive spirometry so we will start some IPPB. Encouraged her to get up to a chair. We will recheck her lab work tomorrow.
[2016-12-06] MEDS: HYDROcod/ACETAMIN 7.5-325 MG/15 ML UDCUP PO PRN ×2 (15:00→21:16)
[2016-12-07] MEDS: HYDROcod/ACETAMIN 7.5-325 MG/15 ML UDCUP PO PRN ×3 (02:13→10:56)
[2016-12-07] MEDS: HYOSCYAMINE 0.125 MG TABLET PO PRN ×3 (02:19→10:57)
[2016-12-07] MEDS: LEVOTHYROXINE 88 MCG TABLET PO SCH (06:00)
[2016-12-07 06:53] LABS: Hematocrit 34.1 VOL% (35.7-47.0); Hemoglobin 11.5 GM/DL (12.0-16.0)
--- NOTE | 2016-12-07 07:54 | Anesthesia Post-Op ---
Anesthesia Post OP - Post Ansesthetic Evaluation Patient seen in post op: Yes Resp: within normal limits CV: within normal limits Mental: within normal limits Temp: within normal limits [id number]: within normal limits Nausea and Vomiting: within normal limits Pain: within normal limits
[2016-12-07] MEDS: PANTOPRAZOLE 40 MG VIAL IV SCH (08:46)
[2016-12-07] MEDS: SIMETHICONE CHEW 80 MG TABLET PO SCH ×2 (08:46→14:38)
[2016-12-07] MEDS: SERTRALINE 100 MG TABLET PO SCH (08:47)
--- NOTE | 2016-12-07 11:02 | Discharge Summary ---
Hospital Course - Time spent with patient Time with patient DS: Greater than 30 minutes Specialty Discharge - Follow Up or Referrals Follow up with: Rudolph Mcmahon MD [Physician] - 12/10/16 9:30 am (lab work at [facility] on dec 10: and then you will see Dr. Mcmahon at the office dec 10 9:) Discharge Plan - Discharge Medications No Action Levothyroxine Tab [Synthroid Tab] 88 mcg PO DAILY@0700 hydroCHLOROthiazide [Hydrochlorothiazide] 25 mg PO DAILY Sertraline [Zoloft] 100 mg PO DAILY Cholecalciferol (Vitamin D3) [Vitamin D3] 1 tablet PO DAILY Losartan [Cozaar] 25 mg PO DAILY - Follow Up or Referral Follow Up: Rudolph Mcmahon MD [Physician] - 12/10/16 9:30 am (lab work at [facility] on dec 10: and then you will see Dr. Mcmahon at the office dec 10 9:) - Forms/Instructions Exam - Constitutional Vitals: Period Temp Pulse Resp BP Sys/Cortez Pulse Ox Last 24 Hr 97.2 F-99.6 F 78-104 17-20 111-136/64-80 87-100 Discharge Results Labs on day of discharge: Labs from last 24 hours 12/07/16 12/06/16 12/06/16 06:37 09:49 09:49 Hgb 11.5 L Hct 34.1 L INR 1.0 PT Patient/Control Mix 10.7 Sodium 139 Potassium 3.9 Chloride 106 Carbon Dioxide 29 Anion Gap 7.9 BUN 8 Creatinine 0.40 L GFR Calculation 149 BUN/Creatinine Ratio 20.00 Glucose 119 H Calculated Osmolality 275.5 Calcium 7.7 L Blood Type Antibody Screen Crossmatch 12/03/16 15:52 Hgb Hct INR PT Patient/Control Mix Sodium Potassium Chloride Carbon Dioxide Anion Gap BUN Creatinine GFR Calculation BUN/Creatinine Ratio Glucose Calculated Osmolality Calcium Blood Type A POSITIVE Antibody Screen Negative Crossmatch See Detail DS: Provider Date of admission: 12/03/16 05:51 Primary care physician: Fede Noland M.D. Attending physician on admission: Rudolph Mcmahon MD Consults: 12/03/16 09:21 Consult to Physician [CONS] Routine Comment: Dr. Fede Noland Consulting Provider: Fede Noland Consulting Provider Notified: Yes When should Consulting Provider be notified: Now Person Notified: juanito called Date Notified: 12/03/16 Time Notified: 12:30 12/03/16 14:49 Consult to Pastoral Services [CONS] Routine Comment: Pastoral Screen: Request Wait Staff Visit 12/03/16 16:10 Consult to Physician [CONS] Routine Comment: Consulting Provider: Jennifer Beckford Consulting Provider Notified: Yes When should Consulting Provider be notified: Now Consult to Specialist Group: Cardiology When should Consulting Provider be notified: Now Person Notified: tara called Date Notified: 12/03/16 Time Notified: 16:16 Discharging clinician: THOMAS Russ Expected date of discharge: 12/07/16
[2016-12-07 11:20] VITALS: BP 113/63
--- NOTE | 2016-12-07 11:39 | Event Note ---
Afebrile vital signs stable. Doing a little bit better today. Says that her cramping and muscle spasm type pain has resolved. She only has pain at the left upper quadrant incision. She had quite a bit of pain last night preventing her from getting up and urinating and this required in and out catheterization. This morning they performed a recheck on her bladder scan and told her there were several 100 cc in there and she was able to get up and says that she urinated over 1100. From a urinary standpoint she says she is feeling fine and back to normal she just did not want to get out of bed because the pain last night. This has significantly improved. On exam her abdomen is soft appropriately tender and nondistended she has bowel sounds. The incisions look good. There is no sign of infection. She has been tolerating her clears adequately without any significant nausea or vomiting. Her hematocrit has been stable around 35. Plan: Advance to phase 2 diet. I will let her go home this afternoon if she feels like her pain is controlled well enough. Prescription for omeprazole Phenergan simethicone Zofran and Levsin. Per Dr. albright when she will resume her Synthroid and Zoloft only. If she leaves today I would like to see her back morning in my office with another H&H. I have asked her to check her blood pressure and heart rate and temperature when she goes home and to call if they are outside the parameters as indicated in her handbook. She is also to call for any problems or if she begins to feel worse have more abdominal pain chest pain shortness of breath or any other concern.
--- NOTE | 2016-12-07 14:31 | Discharge Summary ---
Hospital Course - Hospital Course Hospital Course: Ms. Cabello is a 51-year-old white female with history of morbid obesity, hypertension, and hypothyroidism that was referred to Dr. Mcmahon by Dr. Fede Noland regarding weight loss surgery. Patient has been cleared by psychology and cardiology as well. 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 She was admitted and taken to the operating room on 12/03/[address] Mcmahon for robotically assisted laparoscopic vertical sleeve gastrectomy. Patient did have some postoperative hypotension in which she received some IV fluids. Patient never became tachycardic but she did have some shortness of breath and mild chest pain. EKG done showed an incomplete bundle branch block and her chest x-ray shows some atelectasis. Her follow-up EKG and cardiac enzymes were normal. She did have a drop in her H&H. Dr. Beckford from cardiology was notified. CT of the chest done showed no evidence of pulmonary embolism but did show some fluid mostly around the spleen and the right lobe of the liver. Patients H&H continued to drift downward so patient was taken back to the operating room on for diagnostic laparoscopy and clip ligation of short gastric vessels. No active bleeding was found. Patient's H&H is stable after receiving 2 units of blood. She also had some cramping and muscle spasms that have resolved with her Levsin. Last night she did require some in and out cath but this morning she is urinated well over 1100 cc and is doing fine. Patient has been okay to advance her phase 2 diet. She is being discharged home with prescriptions for omeprazole, Phenergan, simethicone, Zofran, and Levsin. Dr. Fede Noland has seen the patient and will resume her Synthroid and Zoloft only. Patient will follow-up with Dr. Mcmahon in his office on with another H&H. Complete discharge instructions were given to the patient and her in the room. Care coordination, chart review, and completed discharge paperwork took approximately 42 minutes. - Time spent with patient Time with patient DS: Greater than 30 minutes Diagnosis - Discharge Diagnosis (1) Hypertension Status: Chronic (2) Obesity Status: Chronic (3) Status post laparoscopic sleeve gastrectomy Status: Acute (4) Postoperative anemia Status: Resolved Specialty Discharge - Follow Up or Referrals Follow up with: Rudolph Mcmahon MD [Physician] - 12/10/16 9:30 am (lab work at [facility] on dec 10: and then you will see Dr. Mcmahon at the office dec 10:) Discharge Plan - Discharge Data Disposition: Disch To Home/Self Care Condition at Discharge: Stable Discharge Diet: other (Phase 2 diet) Activity: no lifting Hygiene: may shower Driving: other (No driving as long as taking pain medications) Contact your physician if you experience:: fever over 101, Nausea/Vomiting Wound / Dressing Care Instructions: Okay to shower daily with mild soap and water, pat dry, okay to leave open to the air - Discharge Medications New Simethicone Chew Tab [Mylicon Chew Tab] 80 mg PO TID #30 tablet Hyoscyamine Tab [Levsin Tab] 0.125 mg PO Q4H PRN #20 tablet PRN Reason: Spasms Continue Levothyroxine Tab [Synthroid Tab] 88 mcg PO DAILY@0700 Sertraline [Zoloft] 100 mg PO DAILY Discontinued hydroCHLOROthiazide [Hydrochlorothiazide] 25 mg PO DAILY Cholecalciferol (Vitamin D3) [Vitamin D3] 1 tablet PO DAILY Losartan [Cozaar] 25 mg PO DAILY - Follow Up or Referral Follow Up: Rudolph Mcmahon MD [Physician] - 12/10/16 9:30 am (lab work at [facility] on dec 10 and then you will see Dr. Mcmahon at the office dec 10:) - Forms/Instructions Instructions: Laparoscopic Sleeve Gastrectomy (DC) Exam - Constitutional Vitals: Period Temp Pulse Resp BP Sys/Cortez Pulse Ox Last 24 Hr 97.2 F-99.6 F 78-102 17-20 111-134/63-80 87-100 Exam: 51-year-old white female, no acute distress, alert and oriented Chest clear CV regular rate and rhythm Abdomen soft, appropriately tender, incisions look good Extremities no edema Discharge Results Labs on day of discharge: Labs from last 24 hours 12/07/16 12/03/16 06:37 15:52 Hgb 11.5 L Hct 34.1 L Blood Type A POSITIVE Antibody Screen Negative Crossmatch See Detail DS: Provider Date of admission: 12/03/16 05:51 Primary care physician: Fede Noland M.D. Attending physician on admission: Rudolph Mcmahon MD Consults: 12/03/16 09:21 Consult to Physician [CONS] Routine Comment: Dr. Fede Noland Consulting Provider: Fede Noland Consulting Provider Notified: Yes When should Consulting Provider be notified: Now Person Notified: juanito called Date Notified: 12/03/16 Time Notified: 12:30 12/03/16 14:49 Consult to Pastoral Services [CONS] Routine Comment: Pastoral Screen: Request Collateral Analyst Visit 12/03/16 16:10 Consult to Physician [CONS] Routine Comment: Consulting Provider: Jennifer Beckford Consulting Provider Notified: Yes When should Consulting Provider be notified: Now Consult to Specialist Group: Cardiology When should Consulting Provider be notified: Now Person Notified: tara called Date Notified: 12/03/16 Time Notified: 16:16 Discharging clinician: THOMAS Russ Expected date of discharge: 12/07/16
== END 2016-12-07 15:48 | disposition home or self-care (01) | DRG 982 ==
LOC: N.SDSINP 05:51 → N.3E 10:18
PROVIDERS: ADMIT Surgery; ATTEND Surgery